=== PATIENT | male | born 1980 | race Two or more races ===

== ENCOUNTER 2021-02-11 20:20 | Emergency (ER) | payer BC, OTHER ==
[~2021-02-11] VITALS: Ht 160 cm; Wt 65.8 kg
[2021-02-12 01:14] VITALS: BP 140/93
== END 2021-02-12 02:56 | disposition left against medical advice (07) ==
LOC: ER 20:20
DX: M25.511 Pain in right shoulder (principal); Z53.21 Procedure and treatment not carried out due to patient leaving prior to being seen by health care provider
CPT/HCPCS: 73030; 74176

== ENCOUNTER 2022-12-06 21:46 | Emergency (ER) | payer BC ==
[~2022-12-06] VITALS: Ht 160 cm; Wt 135.0 kg
[2022-12-06] MEDS ORDERED: IBUPROFEN 800 MG TAB PO ONE (22:30)
[2022-12-07] MEDS ORDERED: ACE3T PO (02:37)
[2022-12-07 03:19] VITALS: BP 131/79
== END 2022-12-07 03:19 | disposition home or self-care (01) ==
LOC: ER 21:46
DX: S62.322A Displaced fracture of shaft of third metacarpal bone, right hand, initial encounter for closed fracture (principal); Z88.6 Allergy status to analgesic agent; W01.0XXA Fall on same level from slipping, tripping and stumbling without subsequent striking against object, initial encounter; Y93.89 Activity, other specified; Y92.89 Other specified places as the place of occurrence of the external cause; Y99.8 Other external cause status; E11.9 Type 2 diabetes mellitus without complications
CPT/HCPCS: 29125; 73130